=== PATIENT | female | born 1940 | race Caucasian/White ===

== ENCOUNTER → 2016-08-18 | Outpatient (CLI) | payer MEDICARE ==
[2016-08-18 16:59] LABS: Blood Urea Nitrogen 18 mg/dL (7-17); Non-African American GFR(MDRD) >60 (>60 ml/min/1.73 sqM)
--- NOTE | 2016-08-19 08:13 | CT ---
EXAMINATION TYPE: CT angio neck DATE OF EXAM: 08/18/2016 7:35 PM COMPARISON: NONE HISTORY: Left carotid stenosis. CT DLP: 229.20 mGycm Automated exposure control for dose reduction was used. TECHNIQUE: Performed with IV Contrast, patient injected with 65 mL of Omnipaque 350. . FINDINGS: Lung apices are clear. Origin of the great vessels appear to be patent. Hypertrophic and degenerative change of the spine. Thyroid gland somewhat atrophic. Subcentimeter rig ht-sided thyroid nodule suspected Vertebral arteries are symmetric in size. Visualized common carotid arteries appear widely patent wit h no significant stenosis. Carotid bifurcation appears to be patent bilaterally with no significant stenosis. Intracranial visualized structures have a normal appearance. IMPRESSION: THERE IS NO SIGNIFICANT HEMODYNAMIC STENOSIS.
== END | disposition home or self-care (01) ==
LOC: RADCTMAIN 16:25
PROVIDERS: ATTEND Family Medicine
DX: I65.22 Occlusion and stenosis of left carotid artery (principal)
CPT/HCPCS: 82565; 84520; 70498; 36415; Q9967

== ENCOUNTER → 2016-11-03 | Outpatient (CLI) | payer MEDICARE | END | disposition home or self-care (01) | LOC: LABPAT 17:37 | PROVIDERS: ATTEND Orthopaedic Surgery | DX: Z01.812 Encounter for preprocedural laboratory examination (principal) | CPT/HCPCS: 87070 ==

== ENCOUNTER 2016-11-28 08:33 | Inpatient (IN) | payer MEDICARE ==
[2016-11-23 12:08] VITALS: BMI 28.3
--- NOTE | 2016-11-27 13:51 | HP ---
DATE OF ADMISSION: Yu Greenwood is a 76-year-old patient seen with symptomatic left knee osteoarthritis. After having treatment options discussed, she elected to proceed with left total knee arthroplasty. Consent was obtained. Medical clearance was provided Dr. Huston's office. By Dr. Marion Huston's office. Past medical history is hypothyroidism, ozj-ziqlond-[id number] diabetes, depression. Past surgical history is appendectomy, cataract surgery, section, hysterectomy. Daily medications: 1. Aspirin. 2. Levothyroxine. 3. Paxil. ALLERGIES: None reported. SOCIAL HISTORY: Patient denies tobacco use. Physical evaluation of the left knee: Range of motion is 0 to 120 degrees. There is moderate intra-articular effusion. Tenderness along the medial joint line. Positive medial Thais's. Crepitus along the medial and patellofemoral compartments with range of motion. Pain with patellofemoral compression. Ligaments are stable. Hip rotation is without pain. Distal neurovascular exam is intact. Left knee radiographs reveal severe medial and moderate patellofemoral compartment osteoarthritis. IMPRESSION: Left knee osteoarthritis. PLAN: Left total knee arthroplasty.
[~2016-11-28 08:33] MED LIST: ACETAMINOPHEN TAB 500 MG TAB PO ONE; DEXAMETHASONE SOD PHOSPHATE 10 MG/ML 1 ML VIAL IV ONE; HYDROmorphone 1 MG/ML 1 ML SYRINGE IVP PRN; LACTATED RINGERS 1,000 ML IV SCH; MELOXICAM 7.5 MG TAB PO ONE; MIDAZOLAM 2 MG/2 ML VIAL IV PRN; ONDANSETRON 4 MG/2 ML VIAL IVP ONE; TRANEXAMIC ACID 1,000 MG in SODIUM CHLORIDE 0.9% 100 ML IVPB ONE
[2016-11-28] MEDS ORDERED: LIDOCAINE 1% 20 ML VIAL (10MG/ML) FOR IV START INTRADERMA ONE (09:16)
[2016-11-28] MEDS: ceFAZolin 2 GM in SODIUM CHLORIDE 0.9% 100 ML IVPB ONE ×2 (09:20→15:40)
[2016-11-28] MEDS ORDERED: ROPIVACAINE 246.25 MG, EPINEPHrine 0.5 MG, KETOROLAC 30 MG, cloNIDine HCL/PF 80 MCG, WA... MISCELLANE ONE ×5 (09:50)
[2016-11-28] MEDS ORDERED: ROPIVACAINE 1,100 MG, SODIUM CHLORIDE 0.9% 330 ML MISCELLANE PRN ×2 (10:12)
--- NOTE | 2016-11-28 10:14 | P.ONQ ---
Anesthesiology Proc Note - PNB - Peripheral Nerve Block Performed Left Adductor Canal Indication: Acute Post-Operative Pain, Dx/Pain Location, Requested by physician (Alanna) Sedation Type: Sedate with meaningful contact maintained Preparation: Sterile Dressing Position: Supine Catheter: Indwelling Needle Types: Other (see comment) (kamla) Needle Size: 100mm (4") Needle Gauge: 18 Technique: Ultrasound Injectate: 0.5% Ropivacaine (see comment for volume) Blood Aspirated: No Pain Paresthesia on Injection Noted: No Resistance on Injection: Normal Events: Uneventful and Well Tolerated
[2016-11-28] MEDS ORDERED: PHENYLEPHRINE-0.9% NACL SYG 1 MG/10 ML SYRINGE ONE (10:17)
[2016-11-28] MEDS ORDERED: LIDOCAINE 1% INJ 10MG/ML (20 ML MDV) ONE (10:17)
[2016-11-28] MEDS ORDERED: diphenhydrAMINE 50 MG/ML 1 ML VIAL ONE (10:17)
[2016-11-28] MEDS ORDERED: fentaNYL (PF) 50 MCG/ML 2 ML AMP ONE (10:17)
[2016-11-28] MEDS ORDERED: SODIUM CHLORIDE 0.9% 100 ML BAG ONE (10:17)
[2016-11-28] MEDS ORDERED: ePHEDrine 50 MG/ML 1 ML AMP ONE (10:17)
[2016-11-28] MEDS ORDERED: TRANEXAMIC ACID 1,000 MG/10 ML VIAL ONE (10:17)
[2016-11-28] MEDS ORDERED: PROPOFOL 10 MG/ML 20 ML VIAL IV ONE (10:17)
[2016-11-28] MEDS ORDERED: MIDAZOLAM 2 MG/2 ML VIAL ONE (10:17)
[2016-11-28] MEDS ORDERED: ceFAZolin 2 GM in SODIUM CHLORIDE 0.9% 100 ML IVPB ONE (11:00)
[2016-11-28] MEDS ORDERED: ceFAZolin 3,000 MG in SODIUM CHLORIDE 0.9% IRRIGATIO 3,000 ML IRRIGATION ONE (11:02)
[2016-11-28] MEDS ORDERED: LACTATED RINGERS 1,000 ML IV ONE ×2 (11:03→11:58)
[2016-11-28] MEDS ORDERED: HYDROmorphone 1 MG/ML 1 ML SYRINGE IVP PRN ×2 (12:09)
[2016-11-28] MEDS ORDERED: NALOXONE 0.4 MG/ML 1 ML VIAL IV PRN (12:09)
[2016-11-28] MEDS ORDERED: HYDROcodone/APAP 7.5-325MG 1 EACH TAB PO PRN (12:09)
[2016-11-28] MEDS ORDERED: ONDANSETRON 4 MG/2 ML VIAL IVP PRN (12:09)
[2016-11-28] MEDS ORDERED: hydrOXYzine PAMOATE 25 MG CAP PO PRN (12:09)
--- NOTE | 2016-11-28 12:09 | P.OP ---
Date of Procedure: 11/28/16 Preoperative Diagnosis: Left knee osteoarthritis Postoperative Diagnosis: Left knee osteoarthritis Procedure(s) Performed: Left total knee arthroplasty Implants: 1. Dayna persona size 4 standard cemented cruciate retaining femoral component 2. Dayna persona size C cemented tibial component 3. Dayna persona 12 mm medial congruent polyethylene tibial insert 4. Dayna persona 32 mm all polyethylene cemented patella Anesthesia: regional (adductor canal block), spinal Surgeon: Leo Mondragon Helmet Hat Brim Cutter #1: [place] Estimated Blood Loss (ml): 100 Pathology: other (bone) Condition: stable Disposition: PACU Indications for Procedure: 76-year-old patient seen with symptomatic left knee osteoarthritis. After having treatment options discussed, she elected to proceed with left total knee arthroplasty. Operative Findings: see description of procedure Description of Procedure: Patient was taken to the operative suite for having undergone and adductor canal block by the department of anesthesia. Patient underwent a spinal anesthetic by the department of anesthesia. Patient was given preoperative IV intake antibiotics and TXA. A well-padded tourniquet was placed about the left lower extremity. The lower extremity was then prepped and draped in the normal sterile orthopedic fashion. A standard anterior incision was made sharply through skin. Dissection was taken down through the subcutaneous soft tissues down to the extensor mechanism. A medial arthrotomy was performed, patella was everted and knee was flexed. There was advanced osteoarthritis noted. Tourniquet was insufflated to 350. A proximal tibial cutting guide was positioned. Proximal tibial cut was made. A distal intramedullary femoral cutting guide was positioned, distal femoral cut made. We placed the appropriate sizing guide and selected the appropriate size. A distal 4-in-1 femoral cutting block was positioned, distal femoral cuts were made. We now placed a trial femoral component into position, along with an appropriate size tibial tray and insert. We now took the knee through range of motion and had full extension good flexion and good overall soft tissue balance noted. The patella was everted and a flush cut made with patellar quad tendon. We templated the patella, appropriate drill holes were made. An appropriate trial patella was positioned, knee was taken through full range of motion with the patella tracking very nicely. The trial patella was removed. Drill holes were made through the femoral component. All trial components were removed after marking off the appropriate rotation of the tibia. Retractors were now positioned along the proximal tibia. An appropriate keel punch was made with the appropriate size tibial guide. At this point appropriate size implants were chosen and opened. The joint was irrigated copiously with pulse lavage mechanical irrigation. The deep soft tissues were infiltrated with local analgesic. We mixed antibiotic methylmethacrylate. Once the methyl methacrylate was ready, the tibial component was cemented into place removing any excess methylmethacrylate. The femoral component was cemented into place removing the removing any excess methylmethacrylate. We then inserted the appropriate size polyethylene tibial insert. We made sure that it was locked into position. We took the knee into full extension, and then back in a flexion making sure we had removed any excess methylmethacrylate. The patellar component was then cemented down and secured with clamp. Excess methylmethacrylate removed. We kept the knee in full extension, patellar clamp in position until methylmethacrylate had hardened. Once it had hardened the patellar clamp was removed. The knee was taken through full range of motion. The patella tracked nicely. There was good soft tissue balancing. The tourniquet was now released. Additional hemostasis was achieved via electrocautery. A second gram of TXA was given. The wound was irrigated with pulse lavage mechanical irrigation. The superficial soft tissues were infiltrated local analgesic. The extensor mechanism was repaired with Vicryl. We checked the repair with range of motion and it was stable. The subcutaneous soft tissues were repaired with Vicryl in layers. The skin was approximated with pernio/Dermabond. Sterile dressings were applied followed by loose web roll and Austyn bandage. The patient was transferred to a bed, and taken to recovery in stable and satisfactory condition. Angelo SALAZAR assisted with the procedure.
--- NOTE | 2016-11-28 12:52 | XR ---
EXAMINATION TYPE: XR knee limited LT DATE OF EXAM: 11/28/2016 12:44 PM COMPARISON: NONE TECHNIQUE: Two views submitted HISTORY: Post op FINDINGS: There is a prosthetic knee in near anatomic alignment. There is soft tissue edema and emphysema. IMPRESSION: 1. Postoperative change. Appears in near-anatomic alignment
--- NOTE | 2016-11-28 14:32 | P.CONS ---
History of Present Illness - Reason for Consult Consult date: 11/28/16 Medical management Requesting physician: Leo Mondragon - Chief Complaint Status post left total knee arthroplasty - History of Present Illness This is a 76-year-old female, patient of [facility]. She has a known past medical history of hypothyroidism and prediabetes, depression, rheumatic fever as a child and lacunar infarcts. Patient is been suffering with osteoarthritis and pain of the left knee. She underwent a left total knee arthroplasty with Dr. Mondragon. She is postop day #0. Estimated blood loss 100 mL. There are no complications. Patient denies any chest pain or shortness breath. Denies any nausea or vomiting. Denies any bowel movement changes or urinary symptoms. We have been consulted for medical management Past Medical History Past Medical History: CVA/TIA, Hearing Disorder / Deafness, Osteoarthritis (OA) , Thyroid Disorder Additional Past Medical History / Comment(s): SLIGHT HEARING LOSS R/T SMALL TIA. DDD IN NECK AREA. PAD. Lacunar infarct. Rheumatic fever as a child History of Any Multi-Drug Resistant Organisms: None Reported Past Surgical History: Appendectomy, Section, Hysterectomy Additional Past Surgical History / Comment(s): COLONOSCOPY. BILAT CATARACTS REMOVED Past Anesthesia/Blood Transfusion Reactions: No Reported Reaction Past Psychological History: Anxiety Smoking Status: Never smoker Past Alcohol Use History: Rare Past Drug Use History: None Reported - Past Family History Father Family Medical History: Cancer Medications and Allergies Home Medications Medication Instructions Recorded Confirmed Type Aspirin [Adult Low Dose Aspirin EC] 162 mg PO HS 11/23/16 11/28/16 History Levothyroxine Sodium [Synthroid] 75 mcg PO DAILY 11/23/16 11/28/16 History PARoxetine [Paxil] 10 mg PO DAILY 11/23/16 11/28/16 History Allergies Allergy/AdvReac Type Severity Reaction Status Date / Time No Known Allergies Allergy Verified 11/28/16 09:04 Physical Exam Vitals: Vital Signs Temp Pulse Resp BP Pulse Ox 11/28/16 13:30 81 16 111/59 98 11/28/16 13:15 82 16 108/59 98 11/28/16 13:00 81 16 100/59 98 11/28/16 12:42 81 16 91/51 98 11/28/16 12:27 97.8 F 84 16 100/53 95 11/28/16 09:03 98.5 F 88 16 134/68 97 Intake and Output 11/27/16 11/28/16 11/28/16 22:59 06:59 14:59 Intake Total 2401 Output Total 1250 Balance 1151 Intake: IV 2401 Output: Urine 1150 Estimated Blood Loss 100 Head normocephalic Neck supple Lungs clear to auscultation bilaterally no wheezing or crackles Heart regular rate and rhythm S1-S2, no rub or gallop Abdomen is soft nontender nondistended positive bowel sounds no hepatosplenomegaly Extremities no edema. Left leg is Austyn wrapped. +2 dorsalis pedis pulse. Patient reports decreased sensation in the toes and the left foot Neuro alert and orientated to 3 Assessment and Plan Plan: 1. Osteoarthritis of the left knee. Status post left total knee arthroplasty. Continue pain control per orthopedic protocol. Continue DVT prophylaxis with Lovenox 2. History of lacunar infarcts. We'll resume patient's home aspirin 3. Hypothyroidism resume Synthroid 4. Prediabetic: Check blood sugars every before meals and at bedtime. Add sliding scale coverage. Checking globin A1c. Patient reports that her hemoglobin A1c usually ranges around 5. She watches her diet and exercises 5. Depression: Takes a quarter of 10 mg of Paxil daily. We'll hold Paxil while in hospital 6. GI prophylaxis Pepcid and DVT prophylaxis Lovenox Thank you for this consultation. We'll continue to follow along with you Time with Patient: Greater than 30 (Greater than 50% of the total time spent in counseling and coordination of care.I performed an examination of the patient and discussed their management with the physician Deli Associate. I have reviewed the Physician Deli Associate's notes and agree with the documented findings and plan of care)
[2016-11-28] MEDS: traMADol 50 MG TAB PO SCH ×3 (15:41→21:23)
[2016-11-28 16:54] LABS: Glucose,Whole Blood 133 mg/dL (75-99)
[2016-11-28] MEDS: SODIUM CHLORIDE 0.9% 1,000 ML IV SCH (17:05)
[2016-11-28] MEDS: INSULIN LISPRO (humaLOG) 300 UNIT/3 ML VIAL SQ SCH ×2 (17:10→20:40)
[2016-11-28] MEDS: ceFAZolin 2 GM in SODIUM CHLORIDE 0.9% 100 ML IVPB SCH (17:12)
[2016-11-28] MEDS: ASPIRIN 81 MG CHEW PO SCH (20:40)
[2016-11-28 20:41] LABS: Glucose,Whole Blood 196 mg/dL (75-99)
[2016-11-28] MEDS: SENNOSIDES-DOCUSATE SODIUM 1 EACH TAB PO SCH (20:41)
[2016-11-28] MEDS: ENOXAPARIN 30 MG/0.3 ML SYRINGE SQ SCH (20:41)
[2016-11-28] MEDS: HYDROmorphone 1 MG/ML 1 ML SYRINGE IVP PRN (23:37)
[2016-11-29] MEDS: ceFAZolin 2 GM in SODIUM CHLORIDE 0.9% 100 ML IVPB SCH (01:11)
[2016-11-29] MEDS: HYDROmorphone 1 MG/ML 1 ML SYRINGE IVP PRN (01:56)
[2016-11-29] MEDS: HYDROcodone/APAP 7.5-325MG 1 EACH TAB PO PRN ×4 (04:19→21:53)
[2016-11-29] MEDS: LEVOTHYROXINE 75 MCG TAB PO SCH (04:19)
[2016-11-29 07:47] LABS: Glucose,Whole Blood 97 mg/dL (75-99)
[2016-11-29] MEDS: INSULIN LISPRO (humaLOG) 300 UNIT/3 ML VIAL SQ SCH ×3 (08:12→19:14)
[2016-11-29] MEDS: SODIUM CHLORIDE 0.9% 1,000 ML IV SCH (08:13)
[2016-11-29 08:23] LABS: Basophils % (A) 0 %; CH 32.2; CHCM 34.3; Eosinophils % (A) 0 %; HCT 35.1 % (34.0-46.0); HDW 2.42; Luc % (Auto) 1; Lymphocytes # (A) 1.8 k/uL (1.0-4.8); Lymphocytes % (A) 23 %; MCH 32.3 pg (25.0-35.0); MCHC 34.3 g/dL (31.0-37.0); MCV 94.2 fL (80.0-100.0); Mean Platelet Volume 6.5; Monocytes # (A) 0.5 k/uL (0-1.0); Monocytes % (A) 6 %; Neutrophils # (A) 5.5 k/uL (1.3-7.7); Neutrophils % (A) 69 %; RBC 3.73 m/uL (3.80-5.40); RDW 11.8 % (11.5-15.5); WBC (Perox) 7.58
[2016-11-29] MEDS: ENOXAPARIN 30 MG/0.3 ML SYRINGE SQ SCH ×2 (08:30→21:52)
[2016-11-29] MEDS: traMADol 50 MG TAB PO SCH ×3 (08:30→22:58)
[2016-11-29] MEDS: FAMOTIDINE 20 MG TAB PO SCH (08:30)
[2016-11-29] MEDS: MELOXICAM 7.5 MG TAB PO SCH (08:31)
--- NOTE | 2016-11-29 09:16 | P.PN ---
Progress Note - Text The patient is status post left adductor canal catheter placement. The catheter was placed for postoperative pain control, status post total left arthroplasty. Ropivacaine 0.2% is infusing at 8 mLs per hour. The patient has no complaints of left lower extremity numbness or weakness. Patient's VAS score is 0-1 -10. Assessment: Patient's adductor canal catheter is in place and working appropriately. Plan: continue infusion and adjust it as needed.
[2016-11-29 09:41] LABS: ALT 25 U/L (9-52); AST 21 U/L (14-36); Alkaline Phosphatase 51 U/L (38-126); Anion Gap 6 mmol/L; Blood Urea Nitrogen 11 mg/dL (7-17); Carbon Dioxide 28 mmol/L (22-30); Chloride 106 mmol/L (98-107); Glucose 90 mg/dL (74-99); Non-African American GFR(MDRD) >60 (>60 ml/min/1.73 sqM); Potassium 4.5 mmol/L (3.5-5.1); Sodium 140 mmol/L (137-145); Total Bilirubin 0.8 mg/dL (0.2-1.3); Total Protein 5.8 g/dL (6.3-8.2)
[2016-11-29] MEDS: MULTIVITAMINS, THERA 1 EACH TAB PO SCH (10:36)
[2016-11-29 11:53] LABS: Hemoglobin A1C 5.6 % (4.2-6.1)
[2016-11-29 11:59] LABS: Glucose,Whole Blood 92 mg/dL (75-99)
--- NOTE | 2016-11-29 12:25 | P.PN ---
Subjective Principal diagnosis: Status post left total knee arthroplasty Patient is seen today resting in her hospital chair, she appears comfortable. Her pain is well-controlled at this time. She denies any chest pain, shortness of breath, fever or chills. Objective - Vital Signs Vital signs: Vital Signs Temp 98.1 F 11/29/16 07:45 Pulse 89 11/29/16 07:45 Resp 16 11/29/16 07:45 BP 131/62 11/29/16 07:45 Pulse Ox 97 11/29/16 07:45 Intake & Output 11/28/16 11/29/16 11/29/16 18:59 06:59 18:59 Intake Total 2401 1150 Output Total 2750 1500 1000 Balance -349 -350 -1000 Weight 68.039 kg Intake: IV 2401 Intake, IV Titration 750 Amount Sodium Chloride 0.9% 1, 650 000 ml @ 50 mls/hr IV . Q20H KELLIE Rx#:[id number] ceFAZolin 2 gm In Sodium 100 Chloride 0.9% 100 ml @ 100 mls/hr IVPB Q8H KELLIE Rx#:[id number] Oral 400 Output: Urine 2650 1500 1000 Uretheral ([place]) 1000 Estimated Blood Loss 100 Other: Voiding Method Indwelling Catheter Indwelling Catheter Indwelling Catheter - Exam Left lower extremity: Incision is clean, dry and intact. Calf is soft, no tenderness with palpation. Plantar flexion, dorsiflexion, EHL, FHL are intact. Sensory exam to light touch throughout extremities intact, cap refills less than 3 seconds. - Labs CBC & Chem 7: 11/29/16 07:38 11/29/16 07:38 Labs: Abnormal Lab Results - Last 24 Hours (Table) 11/28/16 11/28/16 11/29/16 Range/Units 16:50 20:38 07:38 RBC 3.73 L (3.80-5.40) m/uL POC Glucose (mg/dL) 133 H 196 H (75-99) mg/dL Total Protein (6.3-8.2) g/dL Albumin (3.5-5.0) g/dL 11/29/16 Range/Units 07:38 RBC (3.80-5.40) m/uL POC Glucose (mg/dL) (75-99) mg/dL Total Protein 5.8 L (6.3-8.2) g/dL Albumin 3.3 L (3.5-5.0) g/dL Assessment and Plan Plan: Assessment: 1. Postop day #1 status post left total knee arthroplasty Plan: 1. Pain control, continue oral medication 2. Continue working with therapy 3. Encourage incentive spirometer 4. GI and DVT prophylaxis, continue Lovenox 5. Daily dressing changes/ice and elevate 6. Medical recommendations 7. Discharge planning: Patient will be likely discharged home tomorrow Time with Patient: Less than 30
[2016-11-29 16:57] LABS: Glucose,Whole Blood 114 mg/dL (75-99)
--- NOTE | 2016-11-29 20:06 | P.PN ---
Subjective This is a 76-year-old female, patient of [facility]. She has a known past medical history of hypothyroidism and prediabetes, depression, rheumatic fever as a child and lacunar infarcts. Patient is been suffering with osteoarthritis and pain of the left knee. She underwent a left total knee arthroplasty with Dr. Mondragon. She is postop day #1. On Review of systems Patient denies any chest pain or shortness breath. Denies any nausea or vomiting. Denies any bowel movement changes or urinary symptoms. We have been consulted for medical management Objective - Vital Signs Vital signs: Vital Signs Temp 98.2 F 11/29/16 15:00 Pulse 88 11/29/16 15:00 Resp 16 11/29/16 15:00 BP 113/71 11/29/16 15:00 Pulse Ox 97 11/29/16 15:00 Intake & Output 11/29/16 11/29/16 11/30/16 06:59 18:59 06:59 Intake Total 1150 Output Total 1500 1400 Balance -350 -1400 Intake: Intake, IV Titration 750 Amount Sodium Chloride 0.9% 1, 650 000 ml @ 50 mls/hr IV . Q20H KELLIE Rx#:[id number] ceFAZolin 2 gm In Sodium 100 Chloride 0.9% 100 ml @ 100 mls/hr IVPB Q8H KELLIE Rx#:[id number] Oral 400 Output: Urine 1500 1400 Uretheral ([place]field) 1000 Other: Voiding Method Indwelling Catheter Indwelling Catheter # Voids 3 - Exam In general patient is alert and oriented 3 in no apparent distress HEENT head normocephalic and atraumatic Neck is supple no JVD no goiter no lymphadenopathy Chest exam reveals a few scattered rhonchi no wheezing Cardiac exam reveals regular heart sounds S1 and S2 no murmru Abdomen is soft nontender no organomegaly Extremity exam reveals no edema no cyanosis or clubbing - Labs CBC & Chem 7: 11/29/16 07:38 11/29/16 07:38 Labs: Abnormal Lab Results - Last 24 Hours (Table) 11/28/16 11/29/16 11/29/16 Range/Units 20:38 07:38 07:38 RBC 3.73 L (3.80-5.40) m/uL POC Glucose (mg/dL) 196 H (75-99) mg/dL Total Protein 5.8 L (6.3-8.2) g/dL Albumin 3.3 L (3.5-5.0) g/dL 11/29/16 Range/Units 16:50 RBC (3.80-5.40) m/uL POC Glucose (mg/dL) 114 H (75-99) mg/dL Total Protein (6.3-8.2) g/dL Albumin (3.5-5.0) g/dL Assessment and Plan Plan: 1. Osteoarthritis of the left knee. Status post left total knee arthroplasty. Continue pain control per orthopedic protocol. Continue DVT prophylaxis with Lovenox 2. History of lacunar infarcts. We'll resume patient's home aspirin 3. Hypothyroidism resume Synthroid 4. Prediabetic: Check blood sugars every before meals and at bedtime. Add sliding scale coverage. Checking globin A1c. Patient reports that her hemoglobin A1c usually ranges around 5. She watches her diet and exercises 5. Depression: Takes a quarter of 10 mg of Paxil daily. We'll hold Paxil while in hospital 6. GI prophylaxis Pepcid and DVT prophylaxis Lovenox Patient is doing well possible discharge to home tomorrow
[2016-11-29 20:46] LABS: Glucose,Whole Blood 113 mg/dL (75-99)
[2016-11-29] MEDS: ASPIRIN 81 MG CHEW PO SCH (21:52)
[2016-11-29] MEDS: SENNOSIDES-DOCUSATE SODIUM 1 EACH TAB PO SCH (21:53)
[2016-11-30] MEDS: HYDROcodone/APAP 7.5-325MG 1 EACH TAB PO PRN ×3 (04:13→15:18)
[2016-11-30] MEDS: LEVOTHYROXINE 75 MCG TAB PO SCH (07:04)
[2016-11-30 07:20] LABS: Basophils % (A) 1 %; CH 31.9; CHCM 33.5; Eosinophils # (A) 0.1 k/uL (0-0.7); Eosinophils % (A) 1 %; HCT 33.8 % (34.0-46.0); HDW 2.27; HGB 10.8 gm/dL (11.4-16.0); Luc # (Auto) 0.08; Luc % (Auto) 2; Lymphocytes # (A) 1.3 k/uL (1.0-4.8); Lymphocytes % (A) 23 %; MCH 30.7 pg (25.0-35.0); MCHC 32.1 g/dL (31.0-37.0); MCV 95.7 fL (80.0-100.0); Mean Platelet Volume 6.6; Monocytes # (A) 0.3 k/uL (0-1.0); Monocytes % (A) 6 %; Neutrophils # (A) 3.7 k/uL (1.3-7.7); Neutrophils % (A) 68 %; RBC 3.53 m/uL (3.80-5.40); RDW 12.1 % (11.5-15.5); WBC 5.4 k/uL (3.8-10.6); WBC (Perox) 6.04
[2016-11-30] MEDS: SODIUM CHLORIDE 0.9% 1,000 ML IV SCH (07:29)
[2016-11-30 07:32] LABS: ALT 27 U/L (9-52); AST 21 U/L (14-36); Alkaline Phosphatase 51 U/L (38-126); Anion Gap 5 mmol/L; Blood Urea Nitrogen 10 mg/dL (7-17); Calcium 8.5 mg/dL (8.4-10.2); Carbon Dioxide 30 mmol/L (22-30); Chloride 105 mmol/L (98-107); Glucose 92 mg/dL (74-99); Non-African American GFR(MDRD) >60 (>60 ml/min/1.73 sqM); Potassium 4.3 mmol/L (3.5-5.1); Sodium 140 mmol/L (137-145); Total Bilirubin 0.7 mg/dL (0.2-1.3); Total Protein 5.3 g/dL (6.3-8.2)
[2016-11-30 07:33] LABS: Glucose,Whole Blood 101 mg/dL (75-99)
[2016-11-30 07:49] VITALS: BP 121/58; PULSE 79; RESP 17; TEMP 98.6
[2016-11-30] MEDS: traMADol 50 MG TAB PO SCH ×3 (07:57→12:16)
[2016-11-30] MEDS: INSULIN LISPRO (humaLOG) 300 UNIT/3 ML VIAL SQ SCH ×3 (08:03→12:17)
[2016-11-30] MEDS: FAMOTIDINE 20 MG TAB PO SCH (08:12)
[2016-11-30] MEDS: MELOXICAM 7.5 MG TAB PO SCH (08:12)
[2016-11-30] MEDS: ENOXAPARIN 30 MG/0.3 ML SYRINGE SQ SCH (09:13)
--- NOTE | 2016-11-30 10:30 | P.DS ---
Providers Date of admission: 11/28/16 08:33 Expected date of discharge: 11/30/16 Attending physician: Leo Mondragon Consults: 11/28/16 12:09 Consult Physician Routine Consulting Provider: Glendy Broussard Consult Reason/Comments: Medical management Do you want consulting provider notified?: Yes Primary care physician: Marion Huston Hospital Course: Date of admission: 11/28/2016 Date of discharge: 11/30/2016 Admission diagnosis: Status post left total knee arthroplasty Discharge diagnosis: Same Attending physician: Dr. Mondragon Surgical procedures: Left total knee arthroplasty Brief history: Patient is a 76-year-old female with a history of with progressive primary left knee osteoarthritis. At this point patient has failed conservative treatment measures and has opted to proceed with a elective left total knee arthroplasty. Hospital course: Details of patient's surgery can be found in operative report. Patient tolerated the procedure well and was subsequently transported to orthopedic floor. Patient's orthopeidc and medical care was provided daily. Patient had daily laboratory tests performed for evaluation of overall blood counts. Patient had daily physical therapy to include strengthening range of motion as well as education with walker ambulation. Patient had daily CPM usage as part of their physical therapy program. Patient was treated with Lovenox for their postoperative DVT prophylaxis during their inpatient stay. Patient was noted to have a relatively uneventful postoperative course. Patient reported satisfactory pain control with oral pain medications by postoperative day 0. Patient showed satisfactory progress with physical therapy. Patient moved steadily through the program and had no difficulty meeting the goals by postoperative day 2. Given patient's otherwise satisfactory course and having met physical therapy goals, plan is to discharge patient home on postoperative day 2. Discharge condition/disposition: Patient will be discharged home in stable condition. Discharge medications: Instructions are given on resumption of patient's normal daily medications per primary care recommendation, in addition patient will be prescribed [place] 7.5 mg/325 mg, tramadol 50 mg, Pepcid 20 mg, Colace 100 mg, aspirin 325 mg. Discharge instructions: 1. Wound care and infection precautions, keep incision dry and covered while showering, no lotions, creams, moisturizers. No soaking, tubs, pools, hottubs. Do not scrub over the incision. 2. Weight-bear as tolerated with walker / cane until follow-up. 3. Ice and elevate when necessary. Do not exceed 20 minutes per hour with ice pack. 4. Utilize compression sleeve until seen at first follow up appointment. 5. Visiting nursing care. 6. Home physical therapy including home CPM. 7. Pain meds and anticoagulants per prescription. 8. Pain medication has potential to cause constipation. Increase oral fluid and fiber intake. Contact primary care provider if you have not had a bowel movement within 48 hours after discharge 9. No anti-inflammatory medication until discussed at first post operative visit, this including Motrin, Aleve, Mobic, Diclofenac. 10. Follow up in office at 2 weeks postop with Angelo Hills PA-C 11. Follow up with your primary care doctor 7-10 days after discharge. 12. Contact [facility] with any questions, . Procedures: Left total knee arthroplasty Patient Condition at Discharge: Good Plan - Discharge Summary New Discharge Prescriptions: Aspirin 325 mg PO BID #60 tab Docusate [Colace] 100 mg PO DAILY #30 capsule Famotidine [Pepcid] 20 mg PO DAILY #30 tablet HYDROcodone/APAP 7.5-325MG [[place] 7.5] 1 - 2 each PO Q6HR PRN #60 tab PRN Reason: Pain traMADol HCl [Ultram] 50 mg PO Q6H PRN #40 tab PRN Reason: Pain Discharge Medication List Levothyroxine Sodium [Synthroid] 75 mcg PO DAILY 11/23/16 [History] PARoxetine [Paxil] 10 mg PO DAILY 11/23/16 [History] Aspirin 325 mg PO BID #60 tab 11/30/16 [Rx] Docusate [Colace] 100 mg PO DAILY #30 capsule 11/30/16 [Rx] Famotidine [Pepcid] 20 mg PO DAILY #30 tablet 11/30/16 [Rx] HYDROcodone/APAP 7.5-325MG [[place] 7.5] 1 - 2 each PO Q6HR PRN #60 tab 11/30/16 [ Rx] traMADol HCl [Ultram] 50 mg PO Q6H PRN #40 tab 11/30/16 [Rx] Follow up Appointment(s)/Referral(s): [place], 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 Wound care and infection precautions, keep incision dry and covered while showering, no lotions, creams, moisturizers. No soaking, pools, hot tubs. Do not scrub over incision. 2. Weight-bear as tolerated with walker / cane until follow-up. 3. Ice and elevate when necessary. Do not exceed 20 minutes per hour with ice pack. 4. Utilize compression sleeve until seen at first follow up appointment. 5. Visiting nursing care. 6. Home physical therapy including home CPM. 7. Pain meds and anticoagulants per prescription. 8. Pain medication has potential to cause constipation. Increase oral fluid and fiber intake. Contact primary care provider if you have not had a bowel movement within 48 hours after discharge. 9. No anti-inflammatory medication until discussed at first post operative visit, this including Motrin, Aleve, Mobic, Diclofenac. 10. Follow up in office at 2 weeks postop with Angelo Hills PA-C 11. Follow up with your primary care doctor 7-10 days after discharge. 12. Contact [facility] with any questions, . Discharge Disposition: HOME WITH HOME HEALTH SERVICES
--- NOTE | 2016-11-30 10:32 | P.PN ---
Subjective Principal diagnosis: Status post left total knee arthroplasty Patient is seen today resting in her hospital chair, she appears comfortable. Her pain is well-controlled at this time. She denies any chest pain, shortness of breath, fever or chills. Objective - Vital Signs Vital signs: Vital Signs Temp 98.6 F 11/30/16 07:00 Pulse 79 11/30/16 07:00 Resp 17 11/30/16 07:00 BP 121/58 11/30/16 07:00 Pulse Ox 98 11/30/16 07:00 Intake & Output 11/29/16 11/30/16 11/30/16 18:59 06:59 18:59 Intake Total 240 Output Total 1400 Balance -1400 240 Intake: Oral 240 Output: Urine 1400 Uretheral ([place]) 1000 Other: Voiding Method Indwelling Catheter Toilet # Voids 3 1 1 - Exam Left lower extremity: Incision is clean, dry and intact. Calf is soft, no tenderness with palpation. Plantar flexion, dorsiflexion, EHL, FHL are intact. Sensory exam to light touch throughout extremities intact, cap refills less than 3 seconds. - Labs CBC & Chem 7: 11/30/16 06:41 11/30/16 06:41 Labs: Abnormal Lab Results - Last 24 Hours (Table) 11/29/16 11/29/16 11/30/16 Range/Units 16:50 20:44 06:41 RBC (3.80-5.40) m/uL Hgb (11.4-16.0) gm/dL Hct (34.0-46.0) % POC Glucose (mg/dL) 114 H 113 H (75-99) mg/dL Total Protein 5.3 L (6.3-8.2) g/dL Albumin 3.0 L (3.5-5.0) g/dL 11/30/16 11/30/16 Range/Units 06:41 07:13 RBC 3.53 L (3.80-5.40) m/uL Hgb 10.8 L (11.4-16.0) gm/dL Hct 33.8 L (34.0-46.0) % POC Glucose (mg/dL) 101 H (75-99) mg/dL Total Protein (6.3-8.2) g/dL Albumin (3.5-5.0) g/dL Assessment and Plan Plan: Assessment: 1. Postop day #2 status post left total knee arthroplasty Plan: 1. Pain control, continue oral medication 2. Continue working with therapy 3. Encourage incentive spirometer 4. GI and DVT prophylaxis, we'll discharge home on aspirin 325 mg twice a day 5. Daily dressing changes/ice and elevate 6. Medical recommendations 7. Discharge planning: Patient will be discharged home today Time with Patient: Less than 30
[2016-11-30 11:47] LABS: Glucose,Whole Blood 105 mg/dL (75-99)
[2016-11-30] MEDS: MULTIVITAMINS, THERA 1 EACH TAB PO SCH (12:16)
--- NOTE | 2016-11-30 12:18 | P.PN ---
Progress Note - Text 0755 anesthesia POD 2. Patient is status post left TKR under spinal anesthesia with an adductor canal catheter placed high in the left thigh for postoperative pain relief. With ropivacaine 0.2% running at 12 mL per hour patient's VAS is ( 2, 4). Catheter site is clean dry and intact. Plan: Continue as before.
--- NOTE | 2016-11-30 14:57 | P.PN ---
Subjective This is a 76-year-old female, patient of [facility]. She has a known past medical history of hypothyroidism and prediabetes, depression, rheumatic fever as a child and lacunar infarcts. Patient is been suffering with osteoarthritis and pain of the left knee. She underwent a left total knee arthroplasty with Dr. Mondragon. She is postop day #2. On Review of systems Patient denies any chest pain or shortness breath. Denies any nausea or vomiting. Denies any bowel movement changes or urinary symptoms. Objective - Vital Signs Vital signs: Vital Signs Temp 98.6 F 11/30/16 07:00 Pulse 79 11/30/16 07:00 Resp 17 11/30/16 07:00 BP 121/58 11/30/16 07:00 Pulse Ox 98 11/30/16 07:00 Intake & Output 11/29/16 11/30/16 11/30/16 18:59 06:59 18:59 Intake Total 240 Output Total 1400 Balance -1400 240 Intake: Oral 240 Output: Urine 1400 Uretheral ([place]) 1000 Other: Voiding Method Indwelling Catheter Toilet # Voids 3 1 3 - Exam In general patient is alert and oriented 3 in no apparent distress HEENT head normocephalic and atraumatic Neck is supple no JVD no goiter no lymphadenopathy Chest exam reveals a few scattered rhonchi no wheezing Cardiac exam reveals regular heart sounds S1 and S2 no murmru Abdomen is soft nontender no organomegaly Extremity exam reveals no edema no cyanosis or clubbing - Labs CBC & Chem 7: 11/30/16 06:41 11/30/16 06:41 Labs: Abnormal Lab Results - Last 24 Hours (Table) 11/29/16 11/29/16 11/30/16 Range/Units 16:50 20:44 06:41 RBC (3.80-5.40) m/uL Hgb (11.4-16.0) gm/dL Hct (34.0-46.0) % POC Glucose (mg/dL) 114 H 113 H (75-99) mg/dL Total Protein 5.3 L (6.3-8.2) g/dL Albumin 3.0 L (3.5-5.0) g/dL 11/30/16 11/30/16 11/30/16 Range/Units 06:41 07:13 11:37 RBC 3.53 L (3.80-5.40) m/uL Hgb 10.8 L (11.4-16.0) gm/dL Hct 33.8 L (34.0-46.0) % POC Glucose (mg/dL) 101 H 105 H (75-99) mg/dL Total Protein (6.3-8.2) g/dL Albumin (3.5-5.0) g/dL Assessment and Plan Plan: 1. Osteoarthritis of the left knee. Status post left total knee arthroplasty. Continue pain control per orthopedic protocol. Continue DVT prophylaxis with Lovenox 2. History of lacunar infarcts. We'll resume patient's home aspirin 3. Hypothyroidism resume Synthroid 4. Prediabetic: Check blood sugars every before meals and at bedtime. Add sliding scale coverage. Checking globin A1c. Patient reports that her hemoglobin A1c usually ranges around 5. She watches her diet and exercises 5. Depression: Takes a quarter of 10 mg of Paxil daily. We'll hold Paxil while in hospital 6. GI prophylaxis Pepcid and DVT prophylaxis Lovenox Patient is scheduled for discharge today medically she is doing well and is no contraindication for discharge follow-up with primary care physician within 1-2 weeks
== END 2016-11-30 15:41 | disposition home health service (06) | DRG 470 ==
LOC: 2ORMAIN 08:33 → 3SUR 12:16
PROVIDERS: ADMIT Orthopaedic Surgery; ATTEND Orthopaedic Surgery
PROC: 0SRD0J9 Replacement of Left Knee Joint with Synthetic Substitute, Cemented, Open Approach (ICD-10-PCS; principal; 2016-11-28 10:05)
DX: M17.12 Unilateral primary osteoarthritis, left knee (principal); E11.9 Type 2 diabetes mellitus without complications; E03.9 Hypothyroidism, unspecified; H91.90 Unspecified hearing loss, unspecified ear; Z79.82 Long term (current) use of aspirin; Z79.899 Other long term (current) drug therapy; Z86.73 Personal history of transient ischemic attack (TIA), and cerebral infarction without residual deficits
CPT/HCPCS: 80053; 83036; 85025; 88300

== ENCOUNTER → 2017-10-19 | Outpatient (CLI) | payer MEDICARE ==
--- NOTE | 2017-10-19 12:24 | MR ---
EXAMINATION TYPE: MR cervical spine wo con DATE OF EXAM: 10/19/2017 COMPARISON: NONE HISTORY: Radiculopathy, cervical region TECHNIQUE: Multiplanar, multisequence images of the cervical spine were acquired. C2-C3: No evidence for degenerative disc disease. No disc bulge/herniation or protrusion. No Canal stenosis. Foramina are patent bilaterally. C3-C4: No evidence for degenerative disc disease. No disc bulge/herniation or protrusion. No Canal stenosis. Foramina are patent bilaterally. C4-C5: Posterior extension of endplate disc complex causes mass effect on the anterior cervical cord, there is moderate central canal stenosis, lateral extension of endplate disc complex causes bilatera l foraminal encroachment. C5-C6: Posterior extension of endplate disc complex contacts the anterior cervical cord, there is mod erate central canal stenosis, lateral extension endplate disc complex causes bilateral foraminal encr oachment. C6-C7: Posterior extension of endplate disc complex is present causing anterior mass effect on the th ecal sac, mild central canal stenosis, lateral extension of endplate disc complex causes bilateral fo raminal encroachment. C7-T1: No evidence for degenerative disc disease. No disc bulge/herniation or protrusion. No Canal stenosis. Foramina are patent bilaterally. Cervical segments are intact. There is grade 1 retrolisthesis C4-5, C5-6 and C6-7, endplate marrow s ignal change is present with spondylosis, loss of disc height and signal especially at C3-4, C4-5, C5 -6 and C6-7.. Cervical spinal cord is of normal signal. Craniovertebral junction relationships are within normal limits. Partially empty sella noted incidentally. IMPRESSION: Multilevel degenerative disc disease, foraminal encroachment as described.
== END | disposition home or self-care (01) ==
LOC: RADMRIMAIN 10:14
PROVIDERS: ATTEND Family Medicine
DX: M50.10 Cervical disc disorder with radiculopathy, unspecified cervical region (principal)
CPT/HCPCS: 72141

== ENCOUNTER 2017-10-31 06:45 | Day surgery (SDC) | payer MEDICARE ==
[2017-10-26 15:14] VITALS: BMI 29.2
[2017-10-31 07:09] VITALS: TEMP 97.6
[2017-10-31] MEDS ORDERED: LACTATED RINGERS 1,000 ML IV ONE ×2 (07:10)
[2017-10-31] MEDS ORDERED: PROPOFOL 10 MG/ML 20 ML VIAL IV ONE (07:43)
[2017-10-31] MEDS ORDERED: LIDOCAINE 1% INJ 10MG/ML (20 ML MDV) ONE (07:43)
--- NOTE | 2017-10-31 07:58 | P.GSHP ---
History of Present Illness H&P Date: 10/31/17 Chief Complaint: GI bleed This a 77-year-old female referred from Dr. Marion Huston. Patient rents today for colonoscopy. Patient has had issues rectal bleeding. She has a strong family history of colon cancer with her mother and grandmother both having colon cancer. Past Medical History Past Medical History: CVA/TIA, Hearing Disorder / Deafness, Osteoarthritis (OA) , Thyroid Disorder Additional Past Medical History / Comment(s): BLOOD IN STOOL, SLIGHT HEARING LOSS, SMALL TIA. DDD IN NECK AREA, N/T RT ARM AND HAND, Lacunar infarct, Rheumatic fever as a child History of Any Multi-Drug Resistant Organisms: None Reported Past Surgical History: Appendectomy, Section, Hysterectomy, Joint Replacement Additional Past Surgical History / Comment(s): LEFT TOTAL KNEE, COLONOSCOPY, KIMI CATARACTS Past Anesthesia/Blood Transfusion Reactions: No Reported Reaction Past Psychological History: Anxiety Additional Psychological History / Comment(s): R/T SURGERY Smoking Status: Never smoker Past Alcohol Use History: Rare Past Drug Use History: None Reported - Past Family History Father Family Medical History: Cancer Additional Family Medical History / Comment(s): COLON Medications and Allergies Home Medications Medication Instructions Recorded Confirmed Type Levothyroxine Sodium [Synthroid] 75 mcg PO DAILY 11/23/16 10/26/17 History Aspirin [Adult Low Dose Aspirin EC] 81 mg PO BID 10/26/17 10/26/17 History Baclofen [Lioresal] 10 mg PO BID PRN 10/26/17 10/26/17 History Allergies Allergy/AdvReac Type Severity Reaction Status Date / Time No Known Allergies Allergy Verified 10/26/17 15:07 Surgical - Exam Vital Signs Temp Pulse Resp BP Pulse Ox 97.6 F 87 18 146/81 99 10/31/17 07:08 10/31/17 07:08 10/31/17 07:08 10/31/17 07:08 10/31/17 07:08 - General well developed, no distress - Eyes PERRL - ENT normal pinna - Neck no masses - Respiratory normal expansion - Cardiovascular Rhythm: regular - Abdomen Abdomen: soft, non tender Assessment and Plan Assessment: GI bleed Family history of colon cancer We'll perform colonoscopy.
--- NOTE | 2017-10-31 08:18 | P.OP ---
Date of Procedure: 10/31/17 Preoperative Diagnosis: GI bleed Family history colonic Cancer Postoperative Diagnosis: Severe diverticulosis of sigmoid and left colon No evidence of colonic tumor or polyp. Procedure(s) Performed: Colonoscopy Anesthesia: MAC Surgeon: Pedro Williamson Pathology: none sent Condition: stable Disposition: PACU Description of Procedure: The patient's placed on the endoscopy table lateral position. She received IV sedation. The digital rectal exam was performed which revealed a few external hemorrhoid. The flexible colonoscope was then placed patient anus passed throughout the entire colon. The ileocecal valve was visualized. The right colon, ascending colon and transverse colon appeared normal. In the descending colon there is extensive diverticular changes. And in the sigmoid colon there was severe diverticulosis with some evidence of scarring of the colon. The sigmoid colon was very tortuous. There is known to any active diverticulitis. The scope was then brought back the rectum and this appeared normal. Scope was withdrawn for patient.
--- NOTE | 2017-10-31 09:11 | XR ---
2 view abdomen HISTORY: Post colonoscopy, pain, possible perforation 2 views of the abdomen submitted on 3 images Gas-distended loops of small and large bowel are present. No evident pneumoperitoneum or abnormal air -fluid level. Lung bases are clear. Bone mineralization is normal. IMPRESSION: Pneumoperitoneum is not evident, consider CT for increased sensitivity as indicated.
[2017-10-31 09:13] VITALS: BP 129/75; PULSE 86; RESP 18
== END 2017-10-31 09:44 | disposition home or self-care (01) ==
LOC: ORWHC2ENDO 06:45
PROVIDERS: ATTEND Surgery
DX: K57.30 Diverticulosis of large intestine without perforation or abscess without bleeding (principal); K64.4 Residual hemorrhoidal skin tags; Q43.8 Other specified congenital malformations of intestine; Z87.19 Personal history of other diseases of the digestive system; Z80.0 Family history of malignant neoplasm of digestive organs; H91.90 Unspecified hearing loss, unspecified ear; M19.90 Unspecified osteoarthritis, unspecified site; E07.9 Disorder of thyroid, unspecified; H26.9 Unspecified cataract; F41.9 Anxiety disorder, unspecified; F32.9 Major depressive disorder, single episode, unspecified; Z86.73 Personal history of transient ischemic attack (TIA), and cerebral infarction without residual deficits; Z79.82 Long term (current) use of aspirin; Z79.890 Hormone replacement therapy; Z79.899 Other long term (current) drug therapy
CPT/HCPCS: 45378; 74019

== ENCOUNTER 2021-12-17 10:23 | Day surgery (SDC) | payer MEDICARE ==
[2021-12-16 14:47] VITALS: BMI 28.8
[~2021-12-17 10:23] MED LIST changes: -ACETAMINOPHEN TAB 500 MG TAB PO ONE; -DEXAMETHASONE SOD PHOSPHATE 10 MG/ML 1 ML VIAL IV ONE; -HYDROmorphone 1 MG/ML 1 ML SYRINGE IVP PRN; -MELOXICAM 7.5 MG TAB PO ONE; -MIDAZOLAM 2 MG/2 ML VIAL IV PRN; -ONDANSETRON 4 MG/2 ML VIAL IVP ONE; -TRANEXAMIC ACID 1,000 MG in SODIUM CHLORIDE 0.9% 100 ML IVPB ONE
[2021-12-17 11:08] VITALS: TEMP 98.8
[2021-12-17] MEDS ORDERED: LIDOCAINE 1% (10MG/ML) FOR IV START INTRADERMA ONE (11:10)
[2021-12-17] MEDS ORDERED: LIDOCAINE 2% INJ 20 MG/ML (2 ML VIAL) ONE (12:28)
[2021-12-17] MEDS ORDERED: PROPOFOL 10 MG/ML 20 ML VIAL IV ONE (12:28)
--- NOTE | 2021-12-17 12:47 | P.PCN ---
Date of Procedure: 12/17/21 Procedure(s) Performed: BRIEF HISTORY: Patient is a 81-year-old pleasant white female scheduled for an elective colonoscopy as a part of evaluation of intermittent rectal bleeding for the last few months duration. PROCEDURE PERFORMED: Colonoscopy with biopsy. PREOPERATIVE DIAGNOSIS: Intermittent rectal bleeding. IV sedation per Anesthesia. PROCEDURE: After informed consent was obtained, the patient, was brought into the endoscopy unit. IV sedation was administered by Anesthesia under continuous monitoring. Digital rectal examination was normal. Initially the Olympus CF-160 flexible video colonoscope was then inserted in the rectum, gradually advanced into the cecum without any difficulty. Careful examination was performed as the scope was gradually being withdrawn. Ileocecal valve and the appendiceal orifice were visualized and appeared normal. Prep was excellent. In the base of the ce cum there was a 3 mm sessile polyp removed by biopsy. Mucosa of the cecum, ascending colon, transverse colon, descending colon, sigmoid colon, and rectum appeared normal. Extensive left sided diverticulosis. Retroflexion was performed in the rectum and small internal hemorrhoids were seen. The patient tolerated the procedure well. IMPRESSION: 3 millimeters cecal polyp status post cold biopsy Extensive left-sided diverticulosis and small internal hemorrhoids RECOMMENDATIONS: Findings of this examination were discussed with the patien as well as her family. She was advised to follow with the biopsy results. Recommend a high-fiber diet and fiber supplements a regular basis and avoid straining and constipation..
[2021-12-17 13:10] VITALS: BP 140/72; PULSE 64; RESP 18
== END 2021-12-17 13:26 | disposition home or self-care (01) ==
LOC: ORWHC2ENDO 10:23
PROVIDERS: ATTEND Internal Medicine Gastroenterology
DX: D12.0 Benign neoplasm of cecum (principal); K57.30 Diverticulosis of large intestine without perforation or abscess without bleeding; K64.8 Other hemorrhoids; E07.9 Disorder of thyroid, unspecified; K62.5 Hemorrhage of anus and rectum; Z79.82 Long term (current) use of aspirin; Z79.890 Hormone replacement therapy; Z79.899 Other long term (current) drug therapy
CPT/HCPCS: 88305; 45380; J2704; J2001